=== PATIENT | male | born 1935 | race Caucasian/White ===

== ENCOUNTER → 2019-01-11 | Outpatient (CLI) | payer MEDICARE ==
[~2019-01-11] MED LIST: AMIO100T4 PO; ASCO500T3 PO; ASPI-630 PO; CALC-56 PO; CHOL200027 PO; GARL1000 PO; HYDR-3164 PO; HYDR12.58 PO; LECI1200 PO; LISI-130 PO; METO-247 PO; MULT1TAB52 PO; PRAV10TA2 PO; UBID50CA5 PO
[2019-01-11 14:58] LABS: BASO # 0.1 x10^3/uL (0.0-0.2); BASO % 1 % (0-3); EOS # 0.2 x10^3/uL (0.0-0.7); EOS % 3 % (0-3); HEMATOCRIT 41.5 % (39.0-53.0); HEMOGLOBIN 13.9 g/dL (13.0-17.5); LYMPH # 1.4 x10^3/uL (1.0-4.8); LYMPH % 21 % (24-48); MEAN CORPUSCULAR HEMOGLOBIN 33 pg (25-35); MEAN CORPUSCULAR HGB CONC 34 g/dL (31-37); MEAN CORPUSCULAR VOLUME 99 fL (79-100); MONO # 0.8 x10^3/uL (0.0-1.1); MONO % 13 % (0-9); NEUT % 62 % (31-73); PLATELET COUNT 157 x10^3/uL (140-400); WHITE BLOOD COUNT 6.5 x10^3/uL (4.0-11.0)
[2019-01-11 15:51] LABS: ALBUMIN 3.5 g/dL (3.4-5.0); CALCIUM 8.7 mg/dL (8.5-10.1); CREATININE 1.4 mg/dL (0.7-1.3); GFR 48.3; POTASSIUM 4.4 mmol/L (3.5-5.1)
--- NOTE | 2019-01-12 10:54 | NUR ---
FAXED PRE - OP TEST REPORTS TO 'S OFFICE FOR REVIEW AT 1007 01/12/2019 AND RECEIVED TRANSMITTAL CONFIRMATION. ALSO CALLED AND NOTIFIED ANNE MARIE ESPANA AT 1071 .
--- NOTE | 2019-01-15 09:42 | NUR ---
[employer]ACH[employer] HEL[employer] FOR [facility] - [facility] CP# [phone] WAS CALLED 01/14/2019 AT 1900 AND SHE CALLED BACK AT 1915 ,NOTIFIED TO BE HERE ON PATIENT'S DAY OF SURGERY 01/18/2019 SURGERY TIME 0930 AND SHE ALSO GAVE ALTERNATE TEL.# TO CALL FIRST .
== END | disposition home or self-care (01) ==
LOC: SURGPAT 13:34
PROVIDERS: ATTEND Surgery
DX: K40.90 Unilateral inguinal hernia, without obstruction or gangrene, not specified as recurrent (principal)
CPT/HCPCS: 36415; 80048; 82040; 85025

== ENCOUNTER 2019-01-18 07:36 | Day surgery (SDC) | payer MEDICARE ==
[~2019-01-18] VITALS: Ht 188 cm; Wt 79.8 kg
[~2019-01-18 07:36] MED LIST changes: -HYDR-3164 PO; +HYDROmorphone 2 MG/ML VIAL IV PRN; +IV RINGERS,LACTATED 1000ML 1,000 ML IV SCH; +LIDOCAINE 1% PF 2 ML VIAL. ID PRN; +MORPHINE SULFATE 2 MG/ML VIAL. IV PRN; +ONDANSETRON PF 4 MG/2 ML VIAL. IV PRN; +PROCHLORPERAZINE 10 MG/2 ML VIAL. IV PRN; +fentaNYL PF VIAL 100 MCG/2 ML VIAL IV PRN
[2019-01-18] MEDS ORDERED: BUPIVAC MPF-EPI 0.5%-1:200000 30 ML VIAL. ONE (08:39)
[2019-01-18] MEDS ORDERED: PROPOFOL 20 ML IV ONE (08:55)
[2019-01-18] MEDS ORDERED: DEXAMETHASONE SOD PHOS 20 MG/5 ML VIAL. ONE (08:55)
[2019-01-18] MEDS ORDERED: ONDANSETRON PF 4 MG/2 ML VIAL. ONE (08:55)
[2019-01-18] MEDS ORDERED: fentaNYL PF VIAL 100 MCG/2 ML VIAL ONE (08:56)
--- NOTE | 2019-01-18 10:32 | DISCH ---
DISCHARGE INSTRUCTIONS Condition on Discharge Condition on Discharge: Stable Activity After Discharge Activity Instructions for Disc: Activity as tolerated, Avoid exertion Lifting Instructions after Dis: No heavy lifting Driving Instructions after Dis: Do not drive (3-4 days) Diet after Discharge Diet after Discharge: Regular Wound Incision Care Wound/Incision Care: Ice to area for comfort Other wound/incision instructi: march shower Friday Follow-Up Follow up with: Juan Jose next week ISRA MUNOZ MD Jan 18, 2019 10:32
--- NOTE | 2019-01-18 10:37 | PDOC ---
BRIEF OPERATIVE NOTE Date: Jan 18, 2019 Pre-Op Diagnosis right inguinal hernia Post-Op Diagnosis same, indirect Procedure Performed repair with mesh Surgeon Juan Jose Anesthesia Type: General Blood Loss 5cc IV Fluid 300cc Specimens Obtained none Findings indirect sack, adequate floor Complications none Operative Note Wk # [id number] ISRA MUNOZ MD Jan 18, 2019 10:37
[2019-01-18] MEDS ORDERED: HYDR-3164 PO (10:59)
[2019-01-18] MEDS ORDERED: HYDROcodone/APAP 5/325MG 1 TAB TABLET PO ONE (11:00)
[2019-01-18 12:26] VITALS: BP 174/78
--- NOTE | 2019-01-18 12:55 | OP ---
DATE OF SURGERY: 01/18/2019 PREOPERATIVE DIAGNOSIS: Right inguinal hernia. POSTOPERATIVE DIAGNOSIS: Right inguinal hernia, indirect. PROCEDURE: Repair with mesh. SURGEON: Iglesia Munoz MD ANESTHESIA: General LMA. ESTIMATED BLOOD LOSS: 5 mL. INTRAVENOUS FLUID: 300 mL. INDICATIONS: The patient is an 83-year-old with right inguinal fullness and pain, brought for repair. OPERATIVE FINDINGS: An indirect hernia sac was present. The inguinal floor was adequate. DESCRIPTION OF PROCEDURE: The patient brought to the operating suite, given a general LMA and the right groin prepped and draped in usual sterile fashion. A 0.5% Marcaine with epinephrine was infiltrated along the incision line. Incision made and dissection carried down to the external oblique fascia. Bleeders were cauterized or tied as identified. Fascia opened in direction of its fibers, extended through the external ring. Cord was stripped off the pubis. Job drain placed around it and dissection carried back to the internal ring where an indirect hernia sac was identified, skeletonized and reduced. This was held in reduction with a small plug of Phasix mesh, tacked with 2-0 PDS, taking care to avoid injury to adjacent vessels. A keyhole patch was fashioned and placed over the floor of the canal. The slit closed with a single 2-0 PDS stitch. Area checked for hemostasis and when present and a correct sponge count had been obtained, the cord was returned to its normal anatomical position. External oblique fascia closed over a running fashion with 3-0 Vicryl. Subcutaneous approximated with 3-0 Vicryl, skin closed with a subcuticular 4-0 Monocryl. Steri-Strips and sterile dressings applied. Prior to emergence from anesthesia, digital rectal exam revealed no palpable rectal mass. The patient was awakened from his anesthetic and taken to the recovery room in satisfactory condition. IGLESIA MUNOZ MD DR: ZULMA/missy JOB#: [id number] / [id number]
== END 2019-01-18 12:48 | disposition home or self-care (01) ==
LOC: SURG 07:36 → EDUNIT# 09:30 → SURG 12:48
PROVIDERS: ATTEND Surgery
DX: K40.90 Unilateral inguinal hernia, without obstruction or gangrene, not specified as recurrent (principal)
CPT/HCPCS: 49505; A7015; C1781; J0696; J1100; J2405; J2704; J3010; J3490